=== PATIENT | female | born 1970 | race Hispanic/Latino ===

== ENCOUNTER → 2017-09-29 | Day surgery (SDC) | payer OTHER ==
[2017-09-25 14:55] LABS: BASOPHILS # (AUTO) 0.1 (0.0-0.1); BASOPHILS % 0.9 % (0.0-1.0); EOSINOPHILS # (AUTO) 0.1 (0.0-0.4); EOSINOPHILS % 0.8 % (0.0-6.0); HEMATOCRIT 40.6 % (34.2-44.1); HEMOGLOBIN 13.5 g/dL (12.0-16.0); LYMPHOCYTES # (AUTO) 2.7 (1.0-3.2); LYMPHOCYTES % 26.8 % (18.0-39.1); MEAN CORPUSCULAR HEMOGLOBIN 28.5 pg (28-32); MEAN CORPUSCULAR HGB CONC 33.3 g/dL (31-35); MEAN CORPUSCULAR VOLUME 85.7 fL (81-99); MONOCYTES # (AUTO) 0.8 (0.2-0.8); MONOCYTES % 7.8 % (4.4-11.3); NEUTROPHILS # (AUTO) 6.4 (2.1-6.9); NEUTROPHILS % 63.2 % (38.7-80.0); PLATELET COUNT 327 x10e3/uL (140-360); RED BLOOD COUNT 4.74 x10e6/uL (3.6-5.1); RED CELL DISTRIBUTION WIDTH 13.5 % (11.7-14.4)
[2017-09-25 14:57] LABS: CLARITY,URINE CLEAR (CLEAR); COLOR,URINE YELLOW (YELLOW)
[2017-09-25 14:58] LABS: BILIRUBIN,URINE NEGATIVE (NEGATIVE); KETONES,URINE NEGATIVE (NEGATIVE); LEUKOCYTE ESTERASE ,URINE TRACE (NEGATIVE); NITRITE,URINE NEGATIVE (NEGATIVE); PROTEIN,URINE DIPSTICK NEGATIVE (NEGATIVE); URINE UROBILINOGEN 0.2 mg/dL (0.2 - 1)
[2017-09-25 15:13] LABS: ALANINE AMINOTRANSFERASE 273 IU/L (0-55); ALBUMIN 3.9 g/dL (3.5-5.0); ALKALINE PHOSPHATASE 69 IU/L (40-150); ANION GAP 15.1 mmol/L (8-16); BLOOD UREA NITROGEN 10 mg/dL (7-26); BUN/CREATININE RATIO 14 (6-25); CALCIUM 9.8 mg/dL (8.4-10.2); CARBON DIOXIDE 24 mmol/L (22-29); CHLORIDE 103 mmol/L (98-107); CREATININE, SERUM 0.69 mg/dL (0.57-1.11); EST GLOMERULAR FILTRATION RATE > 60 ML/MIN (60-); GLUCOSE 90 mg/dL (74-118); POTASSIUM 4.1 mmol/L (3.5-5.1); SODIUM 138 mmol/L (136-145)
[~2017-09-29] MED LIST: BUPIVACAINE 0.25%/EPI 30ML SDV INJ ONE; DEXAMETHASONE SOD PHOS INJ 4 MG/ML VIAL ONE; FENTANYL CITRATE/PF 100MCG/2 ML INJ ONE; FLUTICASONE; HYDROCODONE/APAP 7.5MG-325MG 1 EA TAB ONE; IOPAMIDOL 610MG/1ML 300 MG/ML VIAL IV ONE; JUNEL FE 1.5 M1 EACH PO; KETOROLAC TROMETHAMINE 30 MG/ML VIAL ONE; METOCLOPRAMIDE HCL 10 MG/2ML VIAL ONE; METOPROLOL TART50 MG PO; MIDAZOLAM HCL 2 MG/2 ML VIAL ONE; ONDANSETRON HCL 4 MG ORAL DISINTEGRATING TAB ONE; ONDANSETRON HCL INJ 2 MG/ML VIAL ONE; PROPOFOL IV EMULSION 10 MG/ML 20 ML VIAL ONE; ROCURONIUM BROMIDE 10 MG/ML 5ML VIAL ONE; SEVOFLURANE INHAL SOLN 250 ML PEN BTL ONE
--- NOTE | 2017-09-29 11:18 | Operative Report ---
DATE OF PROCEDURE: September 29, 2017 PREOPERATIVE DIAGNOSES 1. Cholecystitis and cholelithiasis. 2. Abnormal liver function tests, rule out common bile duct stones or liver disease. POSTOPERATIVE DIAGNOSES 1. Cholecystitis and cholelithiasis. 2. Fatty infiltration of the liver. 3. No common bile duct stones. OPERATION PERFORMED: Laparoscopic cholecystectomy with intraoperative cholangiogram and wedge biopsy of right lobe of the liver. [employer]: SIMI Vásquez. ANESTHESIA: General. COMPLICATIONS: None. ESTIMATED BLOOD LOSS: 25 mL. DESCRIPTION OF PROCEDURE: With the patient lying in bed in the supine position, under good general endotracheal anesthesia, the abdomen was prepped with Betadine solution and draped in the usual manner. A Veress needle was introduced into the umbilicus, and pneumoperitoneum was established without any difficulty. An 11-mm trocar was placed into the umbilicus, and a 10-mm video laparoscope was placed into the intraabdominal cavity. Under direct vision, three 5-mm trocars were placed in the right subcostal region. Video laparoscopy at this point revealed some fatty infiltration of the liver. The gallbladder was full of stones and totally covered up with adhesions. At the very top of the gallbladder there appeared to be a small lesion, which was probably secondary to inflammation and some fat necrosis of the omentum that was stuck to it. The rest of the abdominal exploration was otherwise within normal limits. The lesion at the top of the gallbladder was then dissected to leave it attached to the gallbladder, and the omentum that was stuck to the gallbladder was totally and completely using the cautery scissors. At this point, the peritoneum overlying the neck of the gallbladder was then opened, and the cystic duct was identified. The cystic duct was followed, but it appeared to cross across the common duct, and we could not clearly see the insertion. There was a stone stuck in the neck of the gallbladder and the proximal cystic duct. We decided to go ahead and do a cholangiogram. The cystic duct was circumferentially dissected, and a clip was placed at the neck of the gallbladder. The cystic duct was opened, and a couple of small stones were retrieved from the cystic duct. A cholangiocath was then introduced. Using fluoroscopy, half-strength dye was introduced into the biliary tree. This showed free flow of dye into the duodenum. No common duct filling defects. The cystic duct inserted on the left side of the common duct, which was consistent with what we had seen clinically. The cholangiocath was then removed. The cystic duct was then doubly clipped and divided. The cystic artery was similarly doubly clipped and divided. It had an anterior and a posterior branch. The gallbladder was then slowly and carefully taken off the liver bed using the cautery scissors, grasped through the umbilicus and removed without any difficulty. Video laparoscopy was then again carried out. The liver bed was found to be perfectly dry. A wedge of the right lobe of the liver was then taken, and hemostasis was ascertained with the cautery. All of the excess fluid was aspirated. Surgicel was then placed over the liver biopsy site. The pneumoperitoneum was evacuated, and all the trocars were removed under direct vision. The midline fascia at the umbilicus was then closed with a [id number] of #0 Vicryl. All layers were infiltrated on the way out with solution of 1/4 percent Marcaine. Subcutaneous tissue was approximated with 3-0 Vicryl, and the skin was closed with subcuticular 5-0 Vicryl. Benzoin, Steri-Strips and Band-Aids were applied. Sponge, lap and needle count was correct. Patient tolerated the procedure well and returned to the recovery room in stable condition. Job#: [id number]
--- NOTE | 2017-10-01 06:50 | Diagnostic Imaging Report ---
PROCEDURE:CHOLANGIOGRAM INTROP INDICATION: COMPARISON:None. TECHNIQUE:5 fluoroscopically captured images from intraoperative cholangiogram. Fluoroscopy time: 15 seconds. Cumulative air kerma: 10.02 mGy FINDINGS: Normal filling of the imaged intrahepatic and extrahepatic biliary tree. Normal caliber. Free passage of contrast into the duodenum. CONCLUSION: No evidence of choledocholithiasis. Dictated by: Steffen Rowe M.D. on 10/01/2017 at 6:52 Electronically approved by: Steffen Rowe M.D. on 10/01/2017 at 6:52
== END | disposition home or self-care (01) ==
LOC: OR 05:26
PROVIDERS: ATTEND Surgery
DX: K80.10 Calculus of gallbladder with chronic cholecystitis without obstruction (principal); K82.8 Other specified diseases of gallbladder; K76.0 Fatty (change of) liver, not elsewhere classified; R79.89 Other specified abnormal findings of blood chemistry; I10 Essential (primary) hypertension; Z01.810 Encounter for preprocedural cardiovascular examination; Z01.812 Encounter for preprocedural laboratory examination
CPT/HCPCS: 36415; 47379; 47563; 74300; 80053; 81003; 81025; 85025; 88304; 88307; 88313; 93005; C1766; J1100; J1885; J2250; J2405; J2765; Q9967